=== PATIENT | male | born 1940 | race Caucasian/White ===

== ENCOUNTER 2019-02-04 10:45 | Emergency (ER) | payer MEDICARE, OTHER ==
[~2019-02-04] VITALS: Ht 175.3 cm; Wt 99.3 kg
[2019-02-04] MEDS ORDERED: TOPR50TA PO (11:03)
[2019-02-04] MEDS ORDERED: OMEP20CA3 PO (11:03)
[2019-02-04] MEDS ORDERED: POLYPOW XX (11:04)
[2019-02-04] MEDS ORDERED: KLOR10TA76 PO (11:05)
[2019-02-04] MEDS ORDERED: ALLO100T PO (11:06)
[2019-02-04] MEDS ORDERED: LIPI80TA PO (11:06)
[2019-02-04] MEDS ORDERED: PLAV1TAB2 PO (11:07)
[2019-02-04] MEDS ORDERED: ELIQ5TAB PO (11:08)
[2019-02-04] MEDS ORDERED: LASI40TA9 PO (11:08)
[2019-02-04] MEDS ORDERED: LISI-538 PO (11:09)
[2019-02-04 11:40] LABS: BASO # 0.1 10^3/uL (0.0-0.2); BASO % 1.2 % (0.0-1.0); EOS # 0.3 10^3/uL (0.0-0.50); EOS % 3.4 % (0.0-3.0); HEMATOCRIT 45.1 % (42.0-52.0); HEMOGLOBIN 14.8 g/dl (13.5-17.5); LYMPH # 1.1 10^3/uL (1.5-4.5); LYMPH % 15.3 % (24.0-44.0); MEAN CORPUSCULAR HEMOGLOBIN 28.3 pg (27.0-33.0); MEAN CORPUSCULAR HGB CONC 32.8 g/dl (32.0-36.5); MEAN CORPUSCULAR VOLUME 86.2 fl (80.0-96.0); MONO % 13.2 % (0.0-5.0); NEUTROPHILS # 4.9 10^3/uL (1.8-7.7); NEUTROPHILS % 66.1 % (36.0-66.0); PLATELET COUNT, AUTOMATED 188 10^3/uL (150-450); RED BLOOD COUNT 5.23 10^6/uL (4.30-6.10); WHITE BLOOD COUNT 7.4 10^3/uL (4.0-10.0)
--- NOTE | 2019-02-04 11:50 | REP ---
CHEST, PORTABLE: AP portable view of the chest is performed. There is no acute infiltrate or pulmonary edema. There is cardiomegaly. There is tortuosity of the thoracic aorta. Left pacemaker is noted as well as multiple sternal wires. IMPRESSION: Cardiomegaly. No acute infiltrate. Electronically Signed by Jorge Suarez MD 02/05/2019 10:11 A
[2019-02-04 11:58] LABS: INR 1.34; PARTIAL THROMBOPLASTIN TIME 30.7 SECONDS (25.4-37.6); PROTHROMBIN TIME 16.8 SECONDS (12.1-14.4)
[2019-02-04 12:14] LABS: ALBUMIN 3.3 GM/DL (3.2-5.2); ALT/SGPT 48 U/L (12-78); BILIRUBIN,DIRECT 0.1 MG/DL (0.0-0.2); BILIRUBIN,TOTAL 0.6 MG/DL (0.2-1.0); BLOOD UREA NITROGEN 15 MG/DL (7-18); CALCIUM LEVEL 8.5 MG/DL (8.8-10.2); CARBON DIOXIDE LEVEL 27 MEQ/L (21-32); CHLORIDE LEVEL 105 MEQ/L (98-107); CK-MB VALUE MASS < 1.0 NG/ML (<3.6); CPK CREATINE PHOSPHOKINASE 67 U/L (39-308); CREATININE FOR GFR 1.19 MG/DL (0.70-1.30); FREE T4 1.17 NG/DL (0.76-1.46); GLOMERULAR FILTRATION RATE > 60.0 (>42); GLUCOSE, FASTING 122 MG/DL (70-100); MB/CK RELATIVE INDEX 1.49 (< OR =4); NT-PRO BNP 867 PG/ML (<450); POTASSIUM SERUM 3.6 MEQ/L (3.5-5.1); SODIUM LEVEL 139 MEQ/L (136-145); TOTAL PROTEIN 6.6 GM/DL (6.4-8.2); TROPONIN I < 0.02 NG/ML (< 0.10)
[2019-02-04 13:01] VITALS: BP 135/73
--- NOTE | 2019-02-04 19:55 | ECGEPIP ---
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
== END 2019-02-04 13:15 | disposition short-term general hospital (02) ==
LOC: M ED 10:45
DX: I47.2 Ventricular tachycardia (principal); Z95.810 Presence of automatic (implantable) cardiac defibrillator; I44.7 Left bundle-branch block, unspecified; R00.1 Bradycardia, unspecified; I51.7 Cardiomegaly; I25.10 Atherosclerotic heart disease of native coronary artery without angina pectoris; I25.2 Old myocardial infarction; I10 Essential (primary) hypertension; Z72.0 Tobacco use; Z79.01 Long term (current) use of anticoagulants; Z79.899 Other long term (current) drug therapy